=== PATIENT | male | born 1930 | race Caucasian/White ===

== ENCOUNTER 2018-02-11 09:48 | Inpatient (IN) | payer MEDICARE, OTHER ==
[~2018-02-11] VITALS: Ht 167.6 cm; Wt 90.0 kg
[~2018-02-11 09:48] MED LIST: ADLT ASA LOW81 MG PO; ALLOPURINOL300 MG PO; AMOXICILLIN500 MG PO; ASPIRIN LOW DOS81 M2 PO; CLOPIDOGREL75 MG PO; COLCHICINE0.6 M2 PO; EXFORGE HC4 PO; EXFORGE1 TA1 PO; EXFORGE1 TA3 PO; FENOFIBRIC ACI135 MG PO; FISH OIL1000 MG; FISH OIL1000 MG PO; FLEXERIL10 MG PO; FLOMAX0.4 M1 PO; FUROSEMIDE40 MG PO; KLOR-CON/EF25 MEQ PO; LISINOPRIL20 MG PO; LOPRESSOR50 M1 PO; METO50TA52 PO; MICRO-K10 ME1 PO; NOVOLIN 70/30 SC; NOVOLOG FLEXPEN SC; ONE TOUCH ULTRA 100 XX; PRANDIN1 MG PO; PREDNISONE10 MG PO; REPAGLINIDE1 MG PO; SIMVASTATIN40 MG PO; TAMSULOSIN0.4 MG PO; TRILIPIX135 MG PO; TYLENOL # 31 TA1 PO; ULTRAM50 M1 PO; VITAMIN D5000 UNIT PO; VITAMIN D50000 UN1; ZPAK PO; ZYLOPRIM100 MG PO
[2018-02-11] MEDS ORDERED: NOVOLOG MIX SC ×2 (10:15)
[2018-02-11 10:19] LABS: HEMATOCRIT 39.4 % (39.0-50.0); HEMOGLOBIN 13.6 g/dl (14.0-18.0); MEAN CELL VOLUME 96.1 fL CALC (80.0-100.0); MEAN CORPUSCULAR HGB 33.2 pG CALC (26.0-32.0); MEAN CORPUSCULAR HGB CONC 34.5 g/L CALC (32.0-36.0); NEUT# 10.08 thou/uL (1.82-7.42); RED BLOOD COUNT 4.1 mill/uL (4.70-6.10); RED CELL DISTRI WIDTH 13.1 % (11.5-15.5)
[2018-02-11 10:40] LABS: IMMATURE GRANULOCYTES 23.2 % (0.0-1.0)
[2018-02-11 10:44] LABS: INFLUENZA A NONE DETECTED (NONE DETECT); INFLUENZA B NONE DETECTED (NONE DETECT)
[2018-02-11 10:45] LABS: CREATININE 2.9 mg/dL (0.7-1.3); POTASSIUM 3.7 mmol/l (3.5-5.1)
[2018-02-11 12:26] VITALS: BP 149/68
[2018-02-11 15:26] LABS: URINE BILIRUBIN - DIPSTICK NEGATIVE (NEGATIVE); URINE BLOOD DIPSTICK TRACE-INTACT (NEGATIVE); URINE COLOR YELLOW; URINE GLUCOSE - DIPSTICK NEGATIVE (NEGATIVE); URINE KETONE NEGATIVE (NEGATIVE); URINE LEUK ESTERASE NEGATIVE (NEGATIVE); URINE NITRITE - DIPSTICK NEGATIVE (Negative); URINE PH 5.5 (4.5-8.0); URINE PROTEIN - DIPSTICK NEGATIVE (NEG-TRACE); URINE UROBILINOGEN - DIPSTICK 0.2 E.U./dL (0.2)
[2018-02-11 15:30] LABS: URINE CLARITY CLEAR
[2018-02-11 16:05] VITALS: BP 141/65
[2018-02-12] VITALS: BP 133/62
[2018-02-12 04:00] VITALS: BP 118/59
[2018-02-12 05:23] LABS: HEMATOCRIT 35.7 % (39.0-50.0); HEMOGLOBIN 12.1 g/dl (14.0-18.0); MEAN CELL VOLUME 97.5 fL CALC (80.0-100.0); MEAN CORPUSCULAR HGB 33.1 pG CALC (26.0-32.0); MEAN CORPUSCULAR HGB CONC 33.9 g/L CALC (32.0-36.0); NEUT# 6.55 thou/uL (1.82-7.42); RED BLOOD COUNT 3.66 mill/uL (4.70-6.10)
[2018-02-12 05:55] LABS: CREATININE 2.4 mg/dL (0.7-1.3); POTASSIUM 4.2 mmol/l (3.5-5.1)
[2018-02-12 06:00] LABS: IMMATURE GRANULOCYTES 25.3 % (0.0-1.0)
[2018-02-12 08:00] VITALS: BP 136/61
[2018-02-12 12:00] VITALS: BP 135/62
[2018-02-12 16:17] VITALS: BP 144/71
[2018-02-12 20:00] VITALS: BP 178/75
[2018-02-13] VITALS: BP 152/73
[2018-02-13 04:00] VITALS: BP 114/46
[2018-02-13 05:22] LABS: HEMATOCRIT 33.2 % (39.0-50.0); HEMOGLOBIN 11.6 g/dl (14.0-18.0); MEAN CORPUSCULAR HGB 33.5 pG CALC (26.0-32.0); MEAN CORPUSCULAR HGB CONC 34.9 g/L CALC (32.0-36.0); RED BLOOD COUNT 3.46 mill/uL (4.70-6.10); RED CELL DISTRI WIDTH 12.8 % (11.5-15.5)
[2018-02-13 05:35] LABS: CREATININE 1.9 mg/dL (0.7-1.3); POTASSIUM 4.5 mmol/l (3.5-5.1)
[2018-02-13 08:00] VITALS: BP 180/90
[2018-02-13] MEDS ORDERED: ZITHROMAX500 MG PO (08:57)
[2018-02-13] MEDS ORDERED: VANTIN200 M1 PO (08:57)
[2018-02-13] MEDS ORDERED: FLORASTOR250 M1 PO (08:57)
[2018-02-13] MEDS ORDERED: MEDDOSEPAK PO (08:57)
[2018-02-13] MEDS ORDERED: ROBITUSSIN AC10 ML PO (09:00)
[2018-02-13 10:13] VITALS: BP 114/46
== END 2018-02-13 14:15 | disposition home or self-care (01) | DRG 194 ==
LOC: ED 09:48 → ED-I 11:08 → ED 11:15 → ICU 11:16
PROVIDERS: Family Medicine; ADMIT Internal Medicine; ATTEND Internal Medicine
DX: J18.9 Pneumonia, unspecified organism (principal); N18.4 Chronic kidney disease, stage 4 (severe); N17.9 Acute kidney failure, unspecified; J40 Bronchitis, not specified as acute or chronic; J02.0 Streptococcal pharyngitis; I12.9 Hypertensive chronic kidney disease with stage 1 through stage 4 chronic kidney disease, or unspecified chronic kidney disease; E11.22 Type 2 diabetes mellitus with diabetic chronic kidney disease; M10.9 Gout, unspecified; I25.10 Atherosclerotic heart disease of native coronary artery without angina pectoris; M19.90 Unspecified osteoarthritis, unspecified site; K52.9 Noninfective gastroenteritis and colitis, unspecified; Z79.4 Long term (current) use of insulin; Z95.5 Presence of coronary angioplasty implant and graft

== ENCOUNTER → 2019-01-20 | Outpatient (REF) | payer MEDICARE, OTHER ==
[~2019-01-20] MED LIST changes: +FLORASTOR250 M1 PO; +MEDDOSEPAK PO; +NOVOLOG MIX SC; +ROBITUSSIN AC10 ML PO; +VANTIN200 M1 PO; +ZITHROMAX500 MG PO
[2019-01-20 10:02] LABS: HEMATOCRIT 40.9 % (39.0-50.0); HEMOGLOBIN 13.7 g/dl (14.0-18.0); MEAN CELL VOLUME 98.6 fL CALC (80.0-100.0); MEAN CORPUSCULAR HGB CONC 33.5 g/L CALC (32.0-36.0); RED BLOOD COUNT 4.15 mill/uL (4.70-6.10); RED CELL DISTRI WIDTH 12.9 % (11.5-15.5)
[2019-01-20 10:12] LABS: CREATININE 1.4 mg/dL (0.7-1.3); POTASSIUM 4.1 mmol/l (3.5-5.1)
[2019-01-20 10:13] LABS: ALBUMIN 3.8 g/dL (3.2-5.0); BILIRUBIN, TOTAL 0.9 mg/dL (0.0-1.4); CHOLESTEROL HDL RATIO 3.2 (<4.4 (CALC))
[2019-01-20 10:40] LABS: TSH, 3RD GENERATION 1.88 uIU/mL (0.47 - 4.68)
== END | disposition home or self-care (01) ==
LOC: LAB 09:02
PROVIDERS: ATTEND Nurse Practitioner
DX: E11.22 Type 2 diabetes mellitus with diabetic chronic kidney disease (principal); E78.49 Other hyperlipidemia; I10 Essential (primary) hypertension; N18.4 Chronic kidney disease, stage 4 (severe)

== ENCOUNTER → 2019-02-03 | Outpatient (REF) | payer MEDICARE, OTHER ==
[2019-02-03 13:13] LABS: ALBUMIN 3.7 g/dL (3.2-5.0); CREATININE 1.5 mg/dL (0.7-1.3); MAGNESIUM 1.8 mg/dL (1.6-2.3); POTASSIUM 4.1 mmol/l (3.5-5.1)
== END | disposition home or self-care (01) ==
LOC: LAB 11:42
PROVIDERS: ATTEND Internal Medicine
DX: N18.4 Chronic kidney disease, stage 4 (severe) (principal); I10 Essential (primary) hypertension; N25.81 Secondary hyperparathyroidism of renal origin; E11.22 Type 2 diabetes mellitus with diabetic chronic kidney disease; E55.9 Vitamin D deficiency, unspecified